=== PATIENT | male | born 1990 | race Caucasian/White ===

== ENCOUNTER 2017-02-02 18:45 | Emergency (ER) | payer SELFPAY ==
[2017-02-02 19:04] VITALS: BMI 32.1
[2017-02-02 19:07] VITALS: O2SAT 98
[2017-02-02] MEDS ORDERED: Sodium Chloride 0.9% 1,000 ML IV ONE (19:32)
--- NOTE | 2017-02-02 19:54 | C.PDOC ---
History Of Present Illness Patient is a 26 year old male who presents to the ER with a complaint of RUQ pain for several months that worsened today at 17:00. Patient states he has always had this consistent pain with no associated symptoms of nausea, vomiting , or diarrhea. Patient states it has never stopped him from his daily routines. Patient reports he was laying down today when he reports a pain described as "something exploding" in him. Patient reports that he feels like his "organs are leaking" and states he has pain when he moves, walks, and breaths. Denies nausea, vomiting, and diarrhea. Time Seen by Provider: 02/02/17 19:25 Chief Complaint (Nursing): Abdominal Pain History Per: Patient History/Exam Limitations: no limitations Onset/Duration Of Symptoms: Hrs (Worsened at 17:00), Days (Several months) Current Symptoms Are (Timing): Still Present Location Of Pain/Discomfort: RUQ Quality Of Discomfort: Stabbing Associated Symptoms: denies: Nausea, Vomiting, Diarrhea Exacerbating Factors: Movement, Walking, Deep Breaths Past Medical History Reviewed: Historical Data, Nursing Documentation, Vital Signs Vital Signs: Last Vital Signs Temp 98.7 F 02/02/17 19:05 Pulse 109 H 02/02/17 19:05 Resp 20 02/02/17 19:05 BP 133/85 02/02/17 19:05 Pulse Ox 98 02/02/17 21:23 - Medical History PMH: No Chronic Diseases Surgical History: No Surg Hx Family History: States: Unknown Family Hx - Social History Hx Alcohol Use: Yes Hx Substance Use: Yes - Immunization History Hx Tetanus Toxoid Vaccination: No Hx Influenza Vaccination: No Hx Pneumococcal Vaccination: No Review Of Systems Gastrointestinal: Positive for: Abdominal Pain (RUQ, stabbing). Negative for: Nausea, Vomiting, Diarrhea Physical Exam - Physical Exam Appears: Well, Non-toxic Skin: Normal Color, Warm, Dry Head: Atraumatic, Normacephalic Oral Mucosa: Moist Chest: Symmetrical, No Tenderness Cardiovascular: Rhythm Regular, No Murmur Respiratory: Normal Breath Sounds, No Rales, No Rhonchi, No Wheezing Gastrointestinal/Abdominal: Soft, Tenderness (RUQ) Back: Other (Tender to percussion of right costophrenic angle and right mid back ) Neurological/Psych: Oriented x3, Normal Speech, Normal Cognition ED Course And Treatment - Laboratory Results Result Diagrams: 02/02/17 20:11 02/02/17 20:11 Lab Interpretation: No Acute Changes O2 Sat by Pulse Oximetry: 98 (Room air) Pulse Ox Interpretation: Normal - CT Scan/US US ABDOMEN COMPLETE Other Rad Studies (CT/US): Read By Radiologist, Radiology Report Reviewed CT/US Interpretation: IMPRESSION: 1. Evaluation limited secondary to patient body habitus. 2. Hyperechogenicity of the liver is nonspecific and could reflect diffuse fatty infiltration, cirrhosis,. hepatitis, or other etiologies. Clinical correlation recommended. 3. Hyperechoic 5 mm nodules in the gallbladder could reflect gallbladder polyps versus gallstones. Followup evaluation recommended in 3-6 months. 4. Technologist notes a positive Dale sign. Clinical correlation recommended. Reevaluation Time: 21:39 Reassessment Condition: Improved (Feels better after Toradol. Abdomen is now soft without localized tenderness.) Medical Decision Making Medical Decision Making: Plan: * IV fluids * Blood work * Toradol * ABD US Disposition Counseled Patient/Family Regarding: Studies Performed, Diagnosis, Need For Followup, Rx Given - Disposition Referrals: [facility] [Outside] Disposition: HOME/ ROUTINE Disposition Time: 21:40 Condition: IMPROVED Prescriptions: Dicyclomine [Bentyl] 20 mg PO QID PRN #20 tab PRN Reason: Pain, Moderate (4-7) Instructions: Acute Abdominal Pain (ED) - Clinical Impression Clinical Impression: Abdominal pain - Scribe Statement The provider has reviewed the documentation as recorded by the Scribpaige Smith All medical record entries made by the Scribe were at my direction and personally dictated by me. I have reviewed the chart and agree that the record accurately reflects my personal performance of the history, physical exam, medical decision making, and the department course for this patient. I have also personally directed, reviewed, and agree with the discharge instructions and disposition.
[2017-02-02 20:24] LABS: BASO # 0.1 K/uL (0.0-0.2); BASO % 0.7 % (0.0-2.0); EOS # 0.1 K/uL (0.0-0.7); EOS % 1.5 % (0.0-4.0); HEMATOCRIT 42.7 % (35.0-51.0); LYMPH # 2.7 K/uL (1.0-4.3); LYMPH % 29.8 % (20.0-40.0); MEAN CELL VOLUME 92.2 fL (80.0-94.0); MEAN CORPUSCULAR HEMOGLOBIN 31.3 pg (27.0-31.0); MEAN PLATELET VOLUME 8.3 fL (7.2-11.7); MONO # 0.7 K/uL (0.0-0.8); MONO % 7.3 % (0.0-10.0); RED CELL DISTRIBUTION WIDTH 13.1 % (11.5-14.5)
[2017-02-02 20:35] LABS: CHLORIDE 104 mmol/L (98-107); SODIUM 142 mmol/L (132-148)
[2017-02-02 20:36] LABS: POTASSIUM 3.5 mmol/L (3.6-5.2)
[2017-02-02 20:37] LABS: GFR AFRICAN-AMERICAN > 60
[2017-02-02 20:38] LABS: ALB/GLOB RATIO 1.4 (1.0-2.1); ALKALINE PHOSPHATASE 90 U/L (38-126); ALT/SGPT 36 U/L (21-72); AST/SGOT 27 U/L (17-59); BILIRUBIN,TOTAL 0.2 mg/dL (0.2-1.3); BLOOD UREA NITROGEN 13 mg/dL (9-20); CALCIUM 8.7 mg/dl (8.6-10.4); CARBON DIOXIDE 25 mmol/L (22-30); GLUCOSE,RANDOM 137 mg/dL (75-110); TOTAL PROTEIN 7.4 g/dL (6.3-8.3)
[2017-02-02 21:53] VITALS: BP 123/74; PULSE 82; RESP 16; TEMP 97.5
--- NOTE | 2017-02-03 07:21 | US ---
HISTORY: abd pain COMPARISON: None available TECHNIQUE: Sonographic evaluation of the abdomen. FINDINGS: Examination limited by habitus. LIVER: Measures 16.4 cm in sagittal dimension. Echogenic liver may be seen in setting of hepatic parenchymal disease or fatty infiltration. No focal hepatic mass identified. The main portal vein appears patent with normal directional flow. No intrahepatic bile duct dilatation. GALLBLADDER: Hyperechoic 5 mm nodules within the gallbladder may reflect gallbladder polyps versus gallstones ; polyps are favored as there is no clear evidence of posterior acoustic shadowing. No gallbladder wall thickening. Positive sonographic Dale's sign as assessed by the division engineer. COMMON BILE DUCT: Measures 5 mm. PANCREAS: Not well visualized. RIGHT KIDNEY: Measures 11.3 x 5.3 x 5.2cm. No obstructing calculus or hydronephrosis identified. LEFT KIDNEY: Measures 11.4 x 6.5 x 6.5cm. No obstructing calculus or hydronephrosis identified. SPLEEN: Measures approximately 10.3 cm. AORTA: Limited views appear unremarkable. IVC: Limited views appear unremarkable. OTHER FINDINGS: None. IMPRESSION: Examination limited by habitus. Hyperechoic 5 mm nodules within the gallbladder may reflect gallbladder polyps versus gallstones. No gallbladder wall thickening. Positive sonographic Dale's sign as assessed by the division engineer. Correlate clinically. Please note that if these in factor are gallbladder polyps, no consensus exist regarding management of polyps in the size range. Current recommendations indicate continued surveillance with serial follow-up imaging at 3, 6, and 12 months. Echogenic liver may be seen in setting of hepatic parenchymal disease or fatty infiltration. Preliminary impression was provided by virtual radiologic.
--- NOTE | 2017-02-03 07:22 | RAD ---
HISTORY: RUQ pain COMPARISON: None available. TECHNIQUE: Chest PA and lateral FINDINGS: Examination limited by habitus. LUNGS: No focal consolidation. 9 mm ovoid density may reflect sclerotic focus within the lower thoracic vertebral body versus superimposed nodule. Please note that chest x-ray has limited sensitivity for the detection of pulmonary masses. PLEURA: No significant pleural effusion identified. No definite pneumothorax . CARDIOVASCULAR: The cardiomediastinal silhouette appears within normal limits of size. OSSEOUS STRUCTURES: No acute osseous abnormality identified. VISUALIZED UPPER ABDOMEN: Unremarkable. OTHER FINDINGS: None. IMPRESSION: 9 mm ovoid density may reflect sclerotic focus within the lower thoracic vertebral body versus superimposed nodule. Outpatient CT may be considered for further evaluation if indicated. No focal consolidation, significant pleural effusion, or definite pneumothorax identified.
== END 2017-02-02 21:53 | disposition home or self-care (01) ==
LOC: C.ER 18:45
DX: R10.11 Right upper quadrant pain (principal)
CPT/HCPCS: 71020; 76700; 80053; 83690; 85025; 96374; 99284; J1885; J7040